=== PATIENT | female | born 1990 | race American Indian/Alaskan Native ===

== ENCOUNTER 2016-10-05 11:12 | Outpatient (CLI) | payer MEDICAID ==
[2016-10-05] MEDS ORDERED: LACTATED RINGERS 1,000 ML IV ONE (11:43)
[2016-10-05] MEDS ORDERED: ZOFRAN IV ONE (11:45)
[2016-10-05] MEDS ORDERED: LACTATED RINGERS 1,000 ML ONE (11:57)
[2016-10-05 13:14] VITALS: BP 96/63
== END 2016-10-05 13:41 | disposition home or self-care (01) ==
LOC: TRG 11:12
PROVIDERS: ATTEND Obstetrics & Gynecology Gynecology
DX: O21.2 Late vomiting of pregnancy (principal); O47.02 False labor before 37 completed weeks of gestation, second trimester; Z3A.24 24 weeks gestation of pregnancy
CPT/HCPCS: 59025; 96361; 96374; J2405; J7120; 96360

== ENCOUNTER 2017-01-13 05:48 | Inpatient (IN) | payer MEDICAID ==
[2017-01-13] MEDS ORDERED: SUBLIMAZE ONE (08:39)
[2017-01-13] MEDS ORDERED: ZOFRAN ONE (08:39)
[2017-01-13 08:42] LABS: Hematocrit 28.2 % (30.3-42.9); Hemoglobin 9.1 gm/dl (10.1-14.3); Mean Corpuscular HGB Conc 32 % (30-34); Mean Corpuscular Volume 80 fl (79-97); Platelet Count 246 K/mm3 (140-440); Red Blood Count 3.54 M/mm3 (3.65-5.03); Red Cell Distribution Width 15.4 % (13.2-15.2); White Blood Count 9.3 K/mm3 (4.5-11.0)
[2017-01-13 08:43] LABS: Mean Corpuscular Hemoglobin 26 pg (28-32)
[2017-01-13] MEDS ORDERED: PITOCin/NS 20 UNIT/1000ML DRIP 20 UNITS/1,000 ML BAG IV SCH ×2 (09:00→11:00)
[2017-01-13] MEDS ORDERED: PITOCin/NS 30 UNIT/500ML 30 UNITS/500 ML BAG IV SCH ×2 (09:00)
[2017-01-13] MEDS ORDERED: LACTATED RINGERS 1,000 ML IV SCH ×2 (09:00)
--- NOTE | 2017-01-13 09:01 | History and Physical Report ---
History of Present Illness Date of examination: 01/13/17 Date of admission: 01/13/17 08:11 Chief complaint: Labor History of present illness: Pt is a 26yo BF EDC 01/16/17; EGA 39 4/7 weeks presents to L&D complaining of RUC's q 3-4 mins. She received care at [facility] since 7 weeks and course has been complicated by Hyperemesis resolved with Home Therapy and HSV positive. records are available and GBS is negative. Past History Past Medical History: no pertinent history Past Surgical History: no surgical history [employer] History: herpes Family/Genetic History: none Social history: no significant social history, single - Obstetrical History Expected Date of Delivery: 01/16/17 Actual Gestation: 39 Week(s) 4 Day(s) : 4 Medications and Allergies Allergies Allergy/AdvReac Type Severity Reaction Status Date / Time metoclopramide HCl Allergy Swelling Verified 10/05/16 11:42 [From [facility]] Home Medications Medication Instructions Recorded Confirmed Last Taken Type Ondansetron [Zofran Odt] 4 mg PO Q8HR #12 tab.rapdis 10/07/16 01/13/17 01/12/17 Rx Active Meds: Active Medications Butorphanol Tartrate (Stadol) 2 mg IV Q2H PRN PRN Reason: Pain , Severe (7-10) Ephedrine Sulfate (Ephedrine Sulfate) 10 mg IV Q2M PRN PRN Reason: Hypotension Stop: 01/13/17 09:03 Fentanyl (Sublimaze) 100 mcg IV Q2H PRN PRN Reason: Labor Pain Lactated Ringer's (Lactated Ringers) 1,000 mls @ 125 mls/hr IV DIRECT SANA Last Admin: 01/13/17 09:00 Dose: 125 mls/hr Review of Systems All systems: negative - Vital Signs Vital signs: Vital Signs Pulse Pulse Ox 82 99 01/13/17 05:56 01/13/17 05:56 Temp Pulse Resp BP Pulse Ox 98.7 F 103 H 18 108/71 100 01/13/17 08:40 01/13/17 08:42 01/13/17 08:40 01/13/17 08:40 01/13/17 08:42 - Physical Exam Breasts: Positive: deferred Cardiovascular: Regular rate Lungs: Positive: Clear to auscultation Abdomen: Positive: normal appearance Genitourinary (Female): Positive: normal external genitalia Vagina: Positive: normal moisture Uterus: Positive: enlarged Extremities: Positive: normal - Obstetrical FHR: category 1 Uterine Contraction Monitor Mode: External Cervical Dilatation: 5 Cervical Effacement Percentage: 70 station: -2 Uterine Contraction Pattern: Regular Uterine Tone Measurement Phase: Contraction Uterine Contraction Intensity: Moderate Results Result Diagrams: 01/13/17 08:10 Abnormal lab results 01/13/17 Range/Units 08:10 RBC 3.54 L (3.65-5.03) M/mm3 Hgb 9.1 L (10.1-14.3) gm/dl Hct 28.2 L (30.3-42.9) % MCH 26 L (28-32) pg RDW 15.4 H (13.2-15.2) % All other labs normal. Assessment and Plan - Patient Problems (1) 39 weeks gestation of Onset Date: 01/13/17 Current Visit: Yes Status: Acute Plan to address problem: A: IUP @ 39 4/7 weeks in labor P: Admit to L&D for expectant vaginal delivery
[2017-01-13] MEDS ORDERED: STADOL IV PRN (09:30)
[2017-01-13] MEDS ORDERED: SUBLIMAZE IV PRN (09:30)
[2017-01-13] MEDS ORDERED: ePHEDrine SULFATE IV PRN (09:30)
[2017-01-13] MEDS ORDERED: DULCOLAX PR PRN (10:00)
[2017-01-13] MEDS ORDERED: NARCAN 0.4 MG/1 ML IV PRN (10:00)
[2017-01-13] MEDS ORDERED: XYLOCAINE 2% INFILTRATI ONE (10:00)
[2017-01-13] MEDS ORDERED: BRETHINE SUB-Q PRN (10:00)
[2017-01-13] MEDS ORDERED: BRETHINE IVP PRN (10:00)
[2017-01-13] MEDS ORDERED: MINERAL OIL PO PRN (10:00)
[2017-01-13] MEDS ORDERED: ZOFRAN IV PRN ×2 (10:00→11:00)
--- NOTE | 2017-01-13 10:43 | Procedure Note ---
OB Delivery Note - Delivery Date of Delivery: 01/13/17 Surgeon: IVIS GORDON Estimated blood loss: 100cc - Vaginal Delivery presentation: vertex Delivery position: OA Intrapartum events: none Delivery induction: none Delivery augmentation: rupture of membranes Delivery monitor: external FHT, external uterine Route of delivery: Delivery placenta: spontaneous Delivery cord: nuchal cord, 3 umbilical vessels Episiotomy: none Delivery laceration: none Anesthesia: none - Infant A at 1 minute: 9 at 5 minutes: 9 Infant Gender: Male (3149gms)
[2017-01-13] MEDS ORDERED: PHENERGAN PR PRN (11:00)
[2017-01-13] MEDS ORDERED: SODIUM CHLORIDE FLUSH SYRINGE 10 ML IV PRN (11:00)
[2017-01-13] MEDS ORDERED: PHENERGAN PO PRN (11:00)
[2017-01-13] MEDS ORDERED: PERCOCET 5/325 PO PRN (11:00)
[2017-01-13] MEDS ORDERED: LANSINOH TP PRN (11:00)
[2017-01-13] MEDS ORDERED: BENADRYL PO PRN (11:00)
[2017-01-13] MEDS ORDERED: TUCKS PAD TP PRN (11:00)
[2017-01-13] MEDS ORDERED: TYLENOL PO PRN (11:00)
[2017-01-13] MEDS: MOTRIN PO SCH ×2 (13:57→21:56)
[2017-01-13] MEDS: FEOSOL PO SCH (21:55)
[2017-01-13] MEDS: NORCO 5/325 PO PRN (21:55)
[2017-01-13] MEDS: COLACE PO SCH (21:56)
[2017-01-13] MEDS ORDERED: MILK OF MAGNESIA PO PRN (22:00)
[2017-01-13 22:25] LABS: Hematocrit 27.1 % (30.3-42.9); Hemoglobin 8.5 gm/dl (10.1-14.3)
[2017-01-14] MEDS: SENOKOT S PO SCH
[2017-01-14] MEDS: MOTRIN PO SCH ×2 (05:41)
[2017-01-14] MEDS: NORCO 5/325 PO PRN (05:42)
[2017-01-14] MEDS ORDERED: BOOSTRIX IM ONE (06:00)
--- NOTE | 2017-01-14 09:42 | Progress Note ---
Assessment and Plan PPD# 2 P: -Continue routine care -Anticipate discharge in 24-48 hours - Patient Problems (1) (normal spontaneous vaginal delivery) Current Visit: Yes Status: Acute Subjective - Subjective Date of service: 01/14/17 Principal diagnosis: PPD# 2 Interval history: Patient seen and examined, stable doing well. Adequate bowel bladder function ambulating without difficulty Patient reports: appetite normal, voiding normally, pain well controlled, flatus , ambulating normally, no dizzy ambulation, no nauseated [place]: doing well Objective - Vital Signs Latest vital signs: Vital Signs Temp Pulse Pulse Resp BP BP 01/14/17 00:20 97.5 F L 78 114/76 01/13/17 20:55 98.6 F 75 20 101/72 01/13/17 16:25 98.3 F 63 19 96/62 01/13/17 12:30 98.0 F 77 20 107/74 01/13/17 11:52 83 111/77 01/13/17 11:37 85 109/75 01/13/17 11:22 83 110/80 01/13/17 11:07 78 110/80 01/13/17 10:52 75 114/77 01/13/17 10:36 78 104/68 Intake and Output 01/13/17 01/14/17 01/14/17 22:59 06:59 14:59 Intake Total 360 360 Output Total 350 300 Balance 10 60 Intake: Oral 360 360 Output: Urine 350 300 Void 350 300 Other: Total, Intake Amount 240 240 Total, Output Amount 200 300 Voiding Method Toilet # Voids 1 Void 1 1 - Exam Abdomen: Present: normal appearance, soft. Absent: distention, tenderness, guarding, rigidity Uterus: Present: fundal height below umbilicus. Absent: tenderness Extremities: Present: normal - Labs Labs: Abnormal lab results 01/13/17 Range/Units 22:03 Hgb 8.5 L (10.1-14.3) gm/dl Hct 27.1 L (30.3-42.9) %
--- NOTE | 2017-01-14 09:43 | Discharge Summary ---
Providers - Providers Date of Admission: 01/13/17 08:11 Date of discharge: 01/15/17 Attending physician: IVIS GORDON Primary care physician: CELE CHRISTIAN Hospitalization Reason for admission: active labor Delivery: Episiotomy: none Laceration: none Other procedures: none complications: none Discharge diagnosis: IUP at term delivered baby: male Hospital course: Uncomplicated hospital course Condition at discharge: Good Disposition: DISCHARGED TO HOME OR SELFCARE - Discharge Diagnoses (1) (normal spontaneous vaginal delivery) Status: Acute Plan - Provider Discharge Summary Activity: no sex for 6 weeks, no heavy lifting 4 weeks, no strenuous exercise Diet: routine Additional instructions: [] Smoking cessation referral if applicable(refer to patient education folder for contact #) [] Refer to [facility]'s [facility] Booklet Call your doctor immediately for: * Fever > 100.5 * Heavy vaginal bleeding ( >1 pad per hour) * Severe persistent headache * Shortness of breath * Reddened, hot, painful area to leg or breast * Drainage or odor from incision. * Keep incision clean and dry at all times and follow doctor's instructions regarding bathing/showering - Follow up plan Follow up: CELE CHRISTIAN MD [Primary Care Provider] - 6 Weeks
[2017-01-14] MEDS ORDERED: M-M-R II VACCINE SUB-Q ONE (11:00)
[2017-01-14] MEDS: PRENATAL VITAMIN PO SCH (17:19)
[2017-01-14] MEDS: FEOSOL PO SCH ×2 (17:19→22:40)
[2017-01-14] MEDS: COLACE PO SCH ×2 (17:19→22:40)
[2017-01-15 08:46] VITALS: BP 118/72
[2017-01-15] MEDS: COLACE PO SCH (11:39)
[2017-01-15] MEDS: PRENATAL VITAMIN PO SCH (11:40)
[2017-01-15] MEDS: FEOSOL PO SCH (11:40)
[2017-01-15] MEDS: MOTRIN PO SCH (12:26)
[2017-01-15] MEDS: SENOKOT S PO SCH (12:26)
== END 2017-01-15 15:15 | disposition home or self-care (01) | DRG 774 ==
LOC: TRG 05:48 → LD 08:11 → OB 13:05
PROVIDERS: ADMIT Obstetrics & Gynecology; ATTEND Obstetrics & Gynecology
PROC: 10E0XZZ Delivery of Products of Conception, External Approach (ICD-10-PCS; principal; 2017-01-13)
DX: O69.81X0 Labor and delivery complicated by cord around neck, without compression, not applicable or unspecified (principal); O98.52 Other viral diseases complicating childbirth; Z3A.39 39 weeks gestation of pregnancy; Z37.0 Single live birth; B00.9 Herpesviral infection, unspecified
CPT/HCPCS: 36415; 59025; 85014; 85018; 85027; 86850; 86900; 86901; 90471; 90715; 99211; A6250; G0463; J2405; J2590; J3010; J7120